=== PATIENT | male | born 1995 | race Two or more races ===

== ENCOUNTER 2022-07-08 04:45 | Emergency (ER) | payer OTHER ==
[~2022-07-08] VITALS: Ht 177.8 cm; Wt 127.9 kg
[2022-07-08] MEDS ORDERED: PEPCID AC20 MG PO (15:10)
[2022-07-08] MEDS ORDERED: METRONIDAZOLE500 MG PO (15:10)
[2022-07-08] MEDS ORDERED: CIPRO500 MG PO (15:10)
[2022-07-08] MEDS ORDERED: INTESTINEX680 M1 PO (15:11)
[2022-07-08] MEDS ORDERED: ONDANSETRON ODT4 MG PO (15:11)
== END 2022-07-08 15:23 ==
LOC: ER 04:45
DX: A09 Infectious gastroenteritis and colitis, unspecified (principal); Z91.013 Allergy to seafood